=== PATIENT | male | born 1995 | race Caucasian/White ===

== ENCOUNTER 2021-10-19 23:25 | Emergency (ER) | payer OTHER ==
[~2021-10-19] VITALS: Ht 175.3 cm; Wt 79.4 kg
[2021-10-19 23:38] VITALS: BP 135/87
[2021-10-20] MEDS ORDERED: IBUPROFEN 400 MG TABLET PO ONE
[2021-10-20] MEDS ORDERED: IBUPROFEN 400 MG TABLET ONE (00:01)
== END 2021-10-20 01:51 | disposition home or self-care (01) ==
LOC: EDSEX 23:25 → ER 10-20 00:26
DX: S50.01XA Contusion of right elbow, initial encounter (principal); W01.0XXA Fall on same level from slipping, tripping and stumbling without subsequent striking against object, initial encounter; Y93.89 Activity, other specified; Y92.89 Other specified places as the place of occurrence of the external cause; Y99.8 Other external cause status
CPT/HCPCS: 73080-TC